=== PATIENT | female | born 2000 | race African-American/Black ===

== ENCOUNTER 2022-02-26 17:43 | Inpatient (IN) ==
[2022-02-26] MEDS ORDERED: Lactated Ringers 1000 ml BAG 1,000 ML IV ONE (19:23)
[2022-02-26] MEDS ORDERED: Buffered Lidocaine 1% SYRIN 1 ml INTRADERM ONE (19:23)
[2022-02-26] MEDS ORDERED: Dinoprostone 10 MG VAG.SUPP VAGINAL ONE (19:28)
[2022-02-26] MEDS ORDERED: Lactated Ringers 1000 ml BAG 1,000 ML IV SCH (20:00)
[2022-02-26 22:59] LABS: Urine Benzodiazepine Screen None Detected (None Detect); Urine Cannabinoids Screen None Detected (None Detect); Urine Opiates Screen None Detected (None Detect)
[2022-02-27] MEDS ORDERED: Vancomycin per Pharmacy 1 EA NOTE FOLLOW UP SCH (12:00)
[2022-02-27] MEDS ORDERED: Albuterol HFA INHALER 8 gm MDI INH PRN (13:57)
[2022-02-27 17:51] LABS: ABS Eosinophils 0.2 10^3/ul (0-0.6); ABS Lymphocytes 2.2 10^3/ul (1.0-4.8); ABS Neutrophils 8.7 10^3/ul (1.5-7.7); Eosinophil % 1.9 %; Hematocrit 34 % (35-47); Hemoglobin 11.3 g/dL (12.0-16.0); Lymphocyte % 18.2 %; Mean Corpuscular HGB Conc 33 g/dL (31-36); Mean Corpuscular Hemoglobin 31 pg (27-31); Mean Corpuscular Volume 93 fL (80-97); Mean Platelet Volume 9.4 fL (7.4-10.4); Nucleated Red Blood Cells % 0.1; Platelet Count 244 10^3/uL (150-450); Red Blood Count 3.69 10^6 /uL (3.70-4.87); Red Cell Distribution Width 17 % (10-15); White Blood Count 12.3 10^3/uL (3.5-10.8)
[2022-02-27] MEDS ORDERED: Vancomycin 2,000 MG in NS 0.9% 500 ml BAG 500 ML IVPB ONE (18:00)
[2022-02-27] MEDS ORDERED: OBEPIDURAL (200 ML) 200 ML EPIDURAL ONE (18:56)
[2022-02-27] MEDS ORDERED: Sodium Citrate/Citric Acid LIQ 15 ML UDC PO PRN (19:02)
[2022-02-27] MEDS ORDERED: Lactated Ringers 1000 ml BAG 500 ML IV PRN (19:02)
[2022-02-27] MEDS ORDERED: EPHEDrine (Pressors) 50 MG/ML VIAL IV PUSH PRN ×2 (19:02)
[2022-02-27] MEDS ORDERED: Lactated Ringers 1000 ml BAG 1,000 ML IV ONE (19:02)
[2022-02-27] MEDS ORDERED: Phenylephrine 40 mcg/mL 10mL (400mcg) SYRINGE IV PUSH PRN ×2 (19:02)
[2022-02-27] MEDS ORDERED: Lidocaine 1.5% EPI 1:200,000 30 ML SDV ONE (19:10)
[2022-02-27] MEDS ORDERED: Lactated Ringers 1000 ml BAG 1,000 ML IV SCH ×2 (20:00)
[2022-02-27 21:04] LABS: Urine Appearance Clear; Urine Bilirubin Negative (Negative); Urine Blood Negative (Negative); Urine Color Straw; Urine Glucose Negative (Negative); Urine Ketones Negative (Negative); Urine Nitrite Negative (Negative); Urine Protein Negative (Negative); Urine Specific Gravity 1.013 (1.002-1.030); Urine Urobilinogen Negative (Negative)
[2022-02-27] MEDS ORDERED: Oxytocin in LR 20 UNITS/1,000 ML BAG IVPB SCH (23:45)
[2022-02-28] MEDS ORDERED: Lidocaine 2% w/ EPI 1:200,000 MPF 20 ML SDV VIAL ONE (05:37)
[2022-02-28] MEDS: Vancomycin 1,000 MG in NS 0.9% 250 ml 250 ML IVPB SCH ×2 (06:22→21:38)
[2022-02-28] MEDS ORDERED: Gentamicin ADULT per pharmacy 1 NOTE MISC FOLLOW UP PRN (07:12)
[2022-02-28] MEDS: Gentamicin ADULT 250 MG in NS 0.9% 100 ml BAG 100 ML IVPB SCH (08:44)
[2022-02-28] MEDS: Mometasone/Formoter 200/5 MDI INH SCH ×3 (08:48→23:31)
[2022-02-28] MEDS: OBEPIDURAL (200 ML) 200 ML EPIDURAL SCH (08:49)
[2022-02-28 09:35] LABS: Hematocrit 32 % (35-47); Hemoglobin 10.6 g/dL (12.0-16.0); Mean Corpuscular HGB Conc 33 g/dL (31-36); Mean Corpuscular Hemoglobin 30 pg (27-31); Mean Corpuscular Volume 92 fL (80-97); Mean Platelet Volume 9.4 fL (7.4-10.4); Platelet Count 213 10^3/uL (150-450); Red Blood Count 3.53 10^6 /uL (3.70-4.87); Red Cell Distribution Width 18 % (10-15); White Blood Count 21.4 10^3/uL (3.5-10.8)
[2022-02-28] MEDS ORDERED: Sodium Citrate/Citric Acid LIQ 15 ML UDC ONE (09:47)
[2022-02-28] MEDS ORDERED: Morphine 10 MG/ML VIAL (1 ml) ONE (10:05)
[2022-02-28] MEDS ORDERED: Oxytocin 10 UNITS/ML 1 ML VIAL ONE (10:06)
[2022-02-28] MEDS ORDERED: Ondansetron 4 mg VIAL 2 MG/ML 2 ml VIAL ONE (10:06)
[2022-02-28] MEDS ORDERED: Phenylephrine 40 mcg/mL 10mL (400mcg) SYRINGE ONE (10:08)
[2022-02-28 10:10] LABS: ABS Lymphocytes 1.6 10^3/ul (1.0-4.8); ABS Neutrophils 17.7 10^3/ul (1.5-7.7); Eosinophil % 0.1 %; Lymphocyte % 7.6 %; Nucleated Red Blood Cells % 0.1
[2022-02-28] MEDS ORDERED: Morphine PF AMP (0.5MG/ML) 5 MG/10 ML AMP ONE (10:14)
[2022-02-28 10:17] LABS: Albumin/Globulin Ratio 1.3 (1-3); Calcium 8.9 mg/dL (8.6-10.3); Globulin 2.3 g/dL (2-4); Potassium 3.7 mmol/L (3.5-5.0); Total Bilirubin 0.6 mg/dL (0.2-1.0); Total Protein 5.3 g/dL (6.4-8.9); eGFR CKD-EPI 60.9 (>60)
[2022-02-28] MEDS ORDERED: Ondansetron 4 mg VIAL 2 MG/ML 2 ml VIAL IV PRN (11:49)
[2022-02-28] MEDS ORDERED: Naloxone 0.4 mg VIAL 0.4 mg/ml 1 ml VIAL IV PRN (11:49)
[2022-02-28] MEDS ORDERED: diPHENhydraMINE IV 50 MG/ML 1 ml VIAL (BENADRYL) IV PRN (11:49)
[2022-02-28] MEDS ORDERED: Acetaminophen IV 1 GM/100ML 100 ML IV PRN (11:53)
[2022-02-28] MEDS ORDERED: Glycerin ADULT 2.4 gm SUPP PR PRN (12:34)
[2022-02-28] MEDS ORDERED: Witch Hazel PAD JAR TOPICAL PRN (12:34)
[2022-02-28] MEDS ORDERED: Dibucaine 1% OINT 28.35 GM TUBE PR PRN (12:34)
[2022-02-28] MEDS ORDERED: Oxytocin in LR 20 UNITS/1,000 ML BAG IVPB SCH (13:00)
[2022-02-28] MEDS ORDERED: Lactated Ringers 1000 ml BAG 1,000 ML IV SCH (13:00)
[2022-02-28] MEDS ORDERED: Nalbuphine 10 MG/ML 1 ML VIAL IV PRN ×2 (14:24→14:27)
[2022-02-28] MEDS: Heparin 5000 UNITS/ML 1 mL VIAL SUBCUT SCH (18:06)
[2022-02-28 19:03] LABS: eGFR CKD-EPI 78.4 (>60)
[2022-03-01] MEDS: Heparin 5000 UNITS/ML 1 mL VIAL SUBCUT SCH ×4 (00:39→21:57)
[2022-03-01] MEDS ORDERED: Vancomycin Trough Check NOTE FOLLOW UP ONE (05:30)
[2022-03-01 06:41] LABS: Hematocrit 28 % (35-47); Hemoglobin 9.4 g/dL (12.0-16.0); Mean Corpuscular HGB Conc 33 g/dL (31-36); Mean Corpuscular Hemoglobin 30 pg (27-31); Mean Corpuscular Volume 92 fL (80-97); Mean Platelet Volume 9.2 fL (7.4-10.4); Platelet Count 207 10^3/uL (150-450); Red Cell Distribution Width 17 % (10-15); White Blood Count 19.8 10^3/uL (3.5-10.8)
[2022-03-01 06:59] LABS: Albumin 3.1 g/dL (3.2-5.2); Albumin/Globulin Ratio 1.5 (1-3); Calcium 8.9 mg/dL (8.6-10.3); Globulin 2.1 g/dL (2-4); Potassium 3.6 mmol/L (3.5-5.0); Total Bilirubin 0.4 mg/dL (0.2-1.0); Total Protein 5.2 g/dL (6.4-8.9); Vancomycin Trough 7.3 mcg/mL; eGFR CKD-EPI 100.1 (>60); eGFR CKD-EPI 101.5 (>60)
[2022-03-01 07:33] LABS: ABS Eosinophils 0.1 10^3/ul (0-0.6); ABS Lymphocytes 1.5 10^3/ul (1.0-4.8); ABS Monocytes 1.4 10^3/ul (0-0.8); ABS Neutrophils 16.8 10^3/ul (1.5-7.7); Eosinophil % 0.4 %; Lymphocyte % 7.4 %
[2022-03-01] MEDS: Mometasone/Formoter 200/5 MDI INH SCH (08:51)
[2022-03-01] MEDS: Gentamicin ADULT 250 MG in NS 0.9% 100 ml BAG 100 ML IVPB SCH (08:54)
[2022-03-01] MEDS ORDERED: Vancomycin 1,000 MG in NS 0.9% 250 ml 250 ML IVPB SCH (10:00)
[2022-03-01] MEDS: Vancomycin 1,000 MG in NS 0.9% 250 ml 250 ML IVPB SCH (10:23)
[2022-03-01] MEDS ORDERED: Buffered Lidocaine 1% SYRIN 1 ml INTRADERM ONE (11:10)
[2022-03-01] MEDS: OBEPIDURAL (200 ML) 200 ML EPIDURAL SCH (12:50)
[2022-03-02] MEDS: Mometasone/Formoter 200/5 MDI INH SCH ×3 (01:40→20:21)
[2022-03-02] MEDS: Heparin 5000 UNITS/ML 1 mL VIAL SUBCUT SCH ×3 (06:08→21:54)
[2022-03-03 08:13] VITALS: BP 126/71
[2022-03-03] MEDS: Mometasone/Formoter 200/5 MDI INH SCH (10:52)
[2022-03-03] MEDS: Heparin 5000 UNITS/ML 1 mL VIAL SUBCUT SCH (10:52)
== END 2022-03-03 15:38 | disposition home or self-care (01) | DRG 540 ==
LOC: MCHOBOUT 17:43 → MCHOB 19:24
PROVIDERS: ADMIT Midwife; ATTEND Obstetrics & Gynecology